=== PATIENT | male | born 2000 | race Caucasian/White ===

== ENCOUNTER 2018-05-03 14:18 | Emergency (ER) | payer OTHER ==
[~2018-05-03] VITALS: Ht 185.4 cm; Wt 92.5 kg
[2018-05-03 14:26] VITALS: BP 141/74
[2018-05-03 16:14] VITALS: BP 138/71
== END 2018-05-03 16:14 | disposition home or self-care (01) ==
LOC: MED 14:18
DX: L04.1 Acute lymphadenitis of trunk (principal); J45.909 Unspecified asthma, uncomplicated; Z88.2 Allergy status to sulfonamides
CPT/HCPCS: 99283

== ENCOUNTER 2019-12-27 20:07 | Emergency (ER) | payer OTHER ==
[~2019-12-27] VITALS: Ht 185.4 cm; Wt 89.4 kg
[2019-12-27 20:18] VITALS: BP 140/72
--- NOTE | 2019-12-27 20:21 | NUR ---
PT AMULATED TO LOBBY TO A/W BED
--- NOTE | 2019-12-27 21:10 | NUR ---
PT AMBULATED TO BED #7
--- NOTE | 2019-12-27 21:15 | NUR ---
PT 19 Y/O MALE BIB SELF FOR C/O RLQ ABD PAIN 8/10 X 1 DAY. PT STATES PAIN RADIATES TO R LOWER BACK. ABD IS SOFT, FLAT, AND NON TENDER. BS PRESENT X4. DENIES N/V/D. LAST BM WAS 12/27/2019 AND "NORMAL." PT RESPIRATIONS ARE EVEN AND UNLABORED. SKIN IS WARM AND DRY TO TOUCH. PT AFEBRILE. PT DENIES COUGH. MEDHX: NONE ALLERGIES: NKA
--- NOTE | 2019-12-27 21:15 | NUR ---
*UPDATE: ALLERGIES TO SULFA
[2019-12-27] MEDS ORDERED: NACL 0.9% 1,000 ML IV SCH (21:23)
[2019-12-27] MEDS ORDERED: ONDANSETRON 4 MG/2 ML VIAL IVP ONE (21:25)
[2019-12-27] MEDS ORDERED: MORPHINE SULFATE 4 MG/ML SYR IVP ONE (21:25)
--- NOTE | 2019-12-27 21:45 | NUR ---
Dr. Gonzalez examining patient.
[2019-12-27 21:47] LABS: BASOPHILS # (AUTO) 0.1 K/uL (0.00-0.22); BASOPHILS % (AUTO) 0.7 % (0.0-2.0); EOSINOPHILS # (AUTO) 0.1 K/uL (0-0.4); EOSINOPHILS % (AUTO) 1.7 % (0.0-4.0); HEMATOCRIT 42.7 % (36-52); HEMOGLOBIN 14.2 g/dL (12.0-18.0); LYMPHOCYTES # (AUTO) 3.2 K/uL (2.0-11.5); LYMPHOCYTES % (AUTO) 46.2 % (20.5-51.1); MEAN CORPUSCULAR HEMOGLOBIN 29 pg (27-31); MEAN CORPUSCULAR HGB CONC 33 g/dL (33-37); MEAN CORPUSCULAR VOLUME 86.8 fL (80-94); MONOCYTES # (AUTO) 0.6 K/uL (0.8-1.0); MONOCYTES % (AUTO) 8.4 % (1.7-9.3); PLATELET COUNT (AUTO) 226 K/uL (140-450); RED BLOOD CELL COUNT(AUTO) 4.91 MIL/uL (4.20-6.10); RED CELL DISTRIBUTION WIDTH 12.5 % (11.6-13.7)
[2019-12-27 23:08] VITALS: BP 133/68
[2019-12-27 23:53] LABS: ALBUMIN 3.8 g/dL (3.4-5.0); CARBON DIOXIDE 29.8 mmol/L (21-32); CREATININE 0.7 mg/dL (0.6-1.3); POTASSIUM 3.8 mmol/L (3.5-5.1); TOTAL BILIRUBIN 0.2 mg/dL (0.0-1.0)
--- NOTE | 2019-12-28 00:25 | NUR ---
PT RETURN FROM CT
[2019-12-28 00:45] LABS: APPEARANCE,URINE CLEAR (CLEAR); BILIRUBIN,URINE NEGATIVE (NEGATIVE); BLOOD, URINE NEGATIVE (NEGATIVE); COLOR,URINE YELLOW (YELLOW); PH,URINE 6.5 (5.0-9.0); UGLUCOSE NEGATIVE (NEGATIVE)
[2019-12-28 00:46] LABS: LEUKOCYTE ESTERASE ,URINE NEGATIVE (NEGATIVE); NITRITE, URINE NEGATIVE (NEGATIVE)
--- NOTE | 2019-12-28 01:20 | NUR ---
Patient discharged with v/s stable. Written and verbal after care instructions given and explained. Patient verbalized understanding. Ambulatory with to car. All questions addressed prior to discharge. Advised to follow up with PMD.
== END 2019-12-28 01:20 | disposition home or self-care (01) ==
LOC: MED 20:07
DX: R10.31 Right lower quadrant pain (principal); R11.0 Nausea; J45.909 Unspecified asthma, uncomplicated; Z98.890 Other specified postprocedural states; Z88.2 Allergy status to sulfonamides
CPT/HCPCS: 36415; 74177; 80053; 81003; 82150; 83690; 85025; 96374; 96375; 99285; J2270; J2405; J7030; Q9967